=== PATIENT | female | born 1980 | race Caucasian/White ===

== ENCOUNTER 2018-08-31 17:14 | Emergency (ER) | payer OTHER ==
[~2018-08-31] VITALS: Ht 167.6 cm; Wt 54.4 kg
--- NOTE | 2018-08-31 17:18 | NUR ---
ED Nurse Note: pt brought in by [facility] from [facility], c/o sob and vision problem, per pt statement, pt woke up with difficulty breathing and unable to move her body and flashing vision problem. 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 Pt states she can't move her arms and legs, noted rigidity. Pt aa&ox4, gcs=15, delayed speech, resp even and unlabored, skin warm and dry, o2sat 100% on RA, -n/v/d, sinus tachy on benefits coordinator, will cont monitor.
[2018-08-31] MEDS ORDERED: Albuterol/Ipratropium 3ml neb HHN ONE (17:30)
[2018-08-31] MEDS ORDERED: LORazepam Inj 2mg/ml 1ml IV ONE (17:30)
[2018-08-31 17:49] LABS: BASOPHILS % (AUTO) 1.3 % (0.0-2.0); EOSINOPHILS % (AUTO) 1.9 % (0.0-3.0); HEMATOCRIT 35.3 % (37.0-47.0); HEMOGLOBIN 11.2 G/DL (12.0-16.0); LYMPHOCYTES % (AUTO) 38.5 % (20.0-45.0); MEAN CORPUSCULAR VOLUME 88 FL (80-99); MONOCYTES % (AUTO) 11.6 % (1.0-10.0); NEUTROPHILS % (AUTO) 46.6 % (45.0-75.0); PLATELET COUNT 293 K/UL (150-450); RED BLOOD COUNT 4.03 M/UL (4.20-5.40); RED CELL DISTRIBUTION WIDTH 13.4 % (11.6-14.8); WHITE BLOOD COUNT 6.6 K/UL (4.8-10.8)
[2018-08-31 17:50] LABS: APPEARANCE,URINE SLIGHTLY CLOUDY; BILIRUBIN, URINE NEGATIVE (NEGATIVE); GLUCOSE, URINE (UA) NEGATIVE (NEGATIVE); KETONES,URINE 1+ (NEGATIVE); LEUKOCYTE ESTERASE ,URINE 1+ (NEGATIVE); NITRITE,URINE NEGATIVE (NEGATIVE); PH,URINE 5 (4.5-8.0); PROTEIN,URINE 1+ (NEGATIVE); UROBILINOGEN,URINE 1 MG/DL (0.0-1.0)
[2018-08-31 17:55] LABS: COLOR,URINE YELLOW
[2018-08-31 18:08] LABS: ANION GAP 10 mmol/L (5-15); BLOOD UREA NITROGEN 9 mg/dL (7-18); CALCIUM 9.4 MG/DL (8.5-10.1); CARBON DIOXIDE 26 MMOL/L (21-32); CHLORIDE 104 MMOL/L (98-107); CREATININE 0.7 MG/DL (0.55-1.30); SODIUM 140 MMOL/L (136-145)
[2018-08-31 18:14] VITALS: BP 106/74
[2018-08-31 18:15] LABS: ALANINE AMINOTRANSFERASE 22 U/L (12-78); ALBUMIN 4.2 G/DL (3.4-5.0); ALBUMIN/GLOBULIN RATIO 1.1 (1.0-2.7); ALKALINE PHOSPHATASE 44 U/L (46-116); ASPARTATE AMINO TRANSFERASE 17 U/L (15-37); BILIRUBIN,TOTAL 0.4 MG/DL (0.2-1.0)
--- NOTE | 2018-08-31 18:30 | NUR ---
ED Nurse Note: pt resting comfortably, airway intact, no s/s sob, resp even and unlabored, noted dry cough, nsr on monitoring and evaluation advisor, will cont monitor.
--- NOTE | 2018-08-31 19:00 | NUR ---
ED Nurse Note: contacted Guillermo, pt's friend, per pt's req to notify pt is in the hospital.
--- NOTE | 2018-08-31 19:20 | NUR ---
ED Nurse Note: report given to Kay LADD to endorse care.
--- NOTE | 2018-08-31 19:25 | NUR ---
ED Nurse Note: Patient resting comfortably.
--- NOTE | 2018-08-31 20:42 | NUR ---
ED Nurse Note: Patient anxious to be discharged, has no complaints of acute s/s of distress.
--- NOTE | 2018-08-31 21:40 | NUR ---
ED Nurse Note: Patient is resting and is on her cell phone, no s/s of acute distress. vss.
[2018-08-31 22:03] VITALS: BP 106/74
--- NOTE | 2018-08-31 22:03 | NUR ---
ED Nurse Note: patient cleared for discharge. Patient called friend for mode of transportation. patient a&Ox4, ambulatory with steady gait, iv removed, ID band removed, asll belongings taken with patient.
--- NOTE | 2018-09-01 08:49 | Diagnostic Imaging Report ---
Indication: Pain, altered mental status Technique: Continuous helical CT scanning of the head was performed without intravenous contrast material. Axial and coronal 5 mm sections were generated. Radiation dose was minimized using automated exposure control Dose: Total Dose Length Product - DLP 1368.[address] Dose Index - CTDIvol(s) 70.38 mGy. Comparison: Findings: The ventricular system is normal in size and configuration. There is no shift of midline structures. No abnormal extra-axial fluid collections are noted. There is no evidence of intracerebral bleeding. No other abnormal high or low density areas are noted within the brain. Impression: Normal CT scan of the head without contrast material. This agrees with the preliminary interpretation provided overnight by [facility]. The CT scanner at [facility] is accredited by the [employer] and the scans are performed using protocols designed to limit radiation exposure to as low as reasonably achievable to attain images of sufficient resolution adequate for diagnostic evaluation.
--- NOTE | 2018-09-01 10:41 | Diagnostic Imaging Report ---
Indication: Shortness of breath Technique: One view of the chest Comparison: none Findings: Lungs and pleural spaces are clear. Heart size is normal . Presumed nipple shadows project over the mid to lower lungs bilaterally. Impression: No acute process
--- NOTE | 2018-09-01 11:03 | Emergency Room Report ---
History of Present Illness General Chief Complaint: Dyspnea/Respdistress Source: EMS Present Illness HPI Patient is a 37-year-old female brought in by EMS after increased difficulty breathing. Patient reports having acute onset of shortness of breath. She had prior history of anxiety and psychiatric disease. She states that she had been lying in bed and subsequently began having difficulty with speech and diffuse muscle spasming. Patient was brought in by EMS. Allergies: Coded Allergies: No Known Allergies (Unverified , 08/31/18) Patient History Past Medical History: see triage record, psych hx Now: No Reviewed Nursing Documentation: PMH: Agreed; PSxH: Agreed Nursing Documentation-PMH Past Medical History: No History, Except For History Of Psychiatric Problem: Yes Review of Systems All Other Systems: negative except mentioned in HPI Physical Exam Vital Signs Date Time Temp Pulse Resp B/P (MAP) Pulse Ox O2 Delivery O2 Flow Rate FiO2 08/31/18 17:14 98.1 112 30 110/77 97 Room Air 08/31/18 17:46 21 Sp02 EP Interpretation: reviewed, normal General Appearance: normal inspection, well appearing, no apparent distress, alert, GCS 15, non-toxic Head: atraumatic ENT: normal ENT inspection, hearing grossly normal, normal voice Neck: normal inspection, full range of motion, supple, no bony tend Respiratory: normal inspection, lungs clear, normal breath sounds, no respiratory distress, no retraction, no wheezing Cardiovascular #1: regular rate, rhythm, no edema Gastrointestinal: normal inspection, normal bowel sounds, non tender, soft, no guarding, no hernia Genitourinary: no CVA tenderness Musculoskeletal: normal inspection, back normal, normal range of motion Neurologic: normal inspection, alert, oriented x3, responsive, coffee blender III-XII nml as tested, speech normal Psychiatric: mood/affect normal, anxious, other - Patient initially refused to talk. Skin: normal inspection, normal color, no rash Medical Decision Making Diagnostic Impression: Primary Impression: Anxiety Additional Impression: Dyspnea ER Course Patient presented for difficulty breathing. Differential diagnosis include was not limited to pneumonia, pneumothorax, pulmonary embolism, anxiety, panic attack, among others. Because of complexity of patient's case laboratory testing and imaging studies were ordered. Patient was noted to have prior history of anxiety. She was given IV Ativan. Patient was initially extremely poorly cooperative with history and refused to talk. She was noted to have some carpal pedal spasm initially. Patient's urine drug screen was positive for amphetamine as well as PCP and marijuana. CT of head showed no evidence of intracranial hemorrhage or acute CVA. Patient's oxygen saturation was noted to be unremarkable. Laboratory testing was otherwise unremarkable. Patient was discharged home. Patient was advised to follow-up with her psychiatrist for further evaluation and possible benzodiazepine reinstitution. Last Vital Signs Date Time Temp Pulse Resp B/P (MAP) Pulse Ox O2 Delivery O2 Flow Rate FiO2 08/31/18 22:03 98.0 99 18 106/74 100 Room Air 21 Status: improved Disposition: HOME, SELF-CARE Condition: Stable Patient Instructions: Panic Attacks Additional Instructions: Follow up with your psychiatrist for med refill. Return if worse. Felice Cai MD Sep 01, 2018 11:03
== END 2018-08-31 22:03 | disposition home or self-care (01) ==
LOC: EDBD 17:14 → EMR 17:40
DX: F41.9 Anxiety disorder, unspecified (principal); R06.00 Dyspnea, unspecified
CPT/HCPCS: 36415; 70450; 71045; 80053; 80307; 80329; 81003; 81025; 84484; 85025; 94640; 94664; 96361; 96374; 99284; J7620